=== PATIENT | female | born 1985 | race American Indian/Alaskan Native ===

== ENCOUNTER 2018-05-04 17:23 | Emergency (ER) | payer OTHER ==
[2018-05-04 17:46] VITALS: BP 116/73
[2018-05-04] MEDS ORDERED: TORADOL IM ONE (21:30)
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
--- NOTE | 2018-05-04 23:12 | XRay Report ---
FINAL REPORT PROCEDURE: Right knee. TECHNIQUE: Three views. HISTORY: Knee pain. COMPARISON: No prior studies are available for comparison. FINDINGS: The bones appear intact without fracture or dislocation. The joint spaces appear normal. The soft tissues are unremarkable. There is no evidence of a knee effusion. IMPRESSION: Normal study.
--- NOTE | 2018-05-04 23:14 | XRay Report ---
FINAL REPORT PROCEDURE: Chest. TECHNIQUE: PA view. HISTORY: Chest wall pain. COMPARISON: No prior studies are available for comparison. FINDINGS: The heart and mediastinum appear normal. The lungs are clear and well expanded. I believe there are faint bilateral nipple shadows. This could be confirmed with nipple markers. There are no pleural effusions. The soft tissues and regional skeleton are unremarkable. IMPRESSION: No evidence of acute disease.
== END 2018-05-04 22:36 | disposition home or self-care (01) ==
LOC: ED 17:23
DX: R07.89 Other chest pain (principal); M25.561 Pain in right knee; I10 Essential (primary) hypertension; J45.909 Unspecified asthma, uncomplicated; F17.200 Nicotine dependence, unspecified, uncomplicated; V49.49XA Driver injured in collision with other motor vehicles in traffic accident, initial encounter; Y93.89 Activity, other specified; Y92.89 Other specified places as the place of occurrence of the external cause; Y99.8 Other external cause status
CPT/HCPCS: 71045; 73562; 96372; 99283; J1885